=== PATIENT | female | born 1950 | race Two or more races ===

== ENCOUNTER 2017-03-06 06:35 | Outpatient (CLI) | payer OTHER ==
[~2017-03-06 06:35] MED LIST: ACCUPRIL40 MG; DORZOLAMIDE-TIM10 ML; EVISTA60 MG; HYDROCHLOROTHIA25 MG; LATANOPROST2.5 ML; METFORMIN HCL500 M1; SIMVASTATIN20 MG; TOPROL XL100 M1
== END 2017-03-06 06:53 | disposition home or self-care (01) ==
LOC: LAB 06:35
DX: H25.89 Other age-related cataract (principal); Z01.810 Encounter for preprocedural cardiovascular examination; I10 Essential (primary) hypertension; K21.9 Gastro-esophageal reflux disease without esophagitis; M54.5 Low back pain; E03.8 Other specified hypothyroidism; E11.42 Type 2 diabetes mellitus with diabetic polyneuropathy; E11.51 Type 2 diabetes mellitus with diabetic peripheral angiopathy without gangrene; E55.9 Vitamin D deficiency, unspecified; E66.8 Other obesity; G62.9 Polyneuropathy, unspecified; Z12.11 Encounter for screening for malignant neoplasm of colon

== ENCOUNTER 2017-03-06 07:49 | Outpatient (CLI) | payer OTHER | END 2017-03-06 07:59 | disposition home or self-care (01) | LOC: MAMO-SONO 07:49 | DX: Z12.31 Encounter for screening mammogram for malignant neoplasm of breast (principal); Z87.898 Personal history of other specified conditions; Z12.11 Encounter for screening for malignant neoplasm of colon; H25.89 Other age-related cataract; Z01.810 Encounter for preprocedural cardiovascular examination; I10 Essential (primary) hypertension; K21.9 Gastro-esophageal reflux disease without esophagitis; M54.5 Low back pain; E03.8 Other specified hypothyroidism; E11.42 Type 2 diabetes mellitus with diabetic polyneuropathy; E11.51 Type 2 diabetes mellitus with diabetic peripheral angiopathy without gangrene; E55.9 Vitamin D deficiency, unspecified; E66.8 Other obesity ==

== ENCOUNTER 2017-07-01 06:23 | Outpatient (CLI) | payer OTHER | END 2017-07-01 06:32 | disposition home or self-care (01) | LOC: LAB 06:23 | DX: H25.89 Other age-related cataract (principal); I10 Essential (primary) hypertension; K21.9 Gastro-esophageal reflux disease without esophagitis; M54.5 Low back pain; E03.8 Other specified hypothyroidism; E11.42 Type 2 diabetes mellitus with diabetic polyneuropathy; E11.51 Type 2 diabetes mellitus with diabetic peripheral angiopathy without gangrene; E55.9 Vitamin D deficiency, unspecified; E66.8 Other obesity; G62.89 Other specified polyneuropathies; Z12.11 Encounter for screening for malignant neoplasm of colon ==

== ENCOUNTER → 2017-08-15 07:39 | Outpatient (CLI) | payer OTHER | END | disposition home or self-care (01) | LOC: LAB 07:39 | DX: N39.0 Urinary tract infection, site not specified (principal); R82.79 Other abnormal findings on microbiological examination of urine ==

== ENCOUNTER 2017-09-05 07:48 | Outpatient (CLI) | payer OTHER | END 2017-09-05 08:04 | disposition home or self-care (01) | LOC: LAB 07:48 | DX: N30.00 Acute cystitis without hematuria (principal); B96.5 Pseudomonas (aeruginosa) (mallei) (pseudomallei) as the cause of diseases classified elsewhere ==

== ENCOUNTER 2017-10-10 08:01 | Outpatient (CLI) | payer OTHER | END 2017-10-10 08:07 | disposition home or self-care (01) | LOC: LAB 08:01 | DX: H25.89 Other age-related cataract (principal); K21.9 Gastro-esophageal reflux disease without esophagitis; M54.5 Low back pain; E03.8 Other specified hypothyroidism; E11.42 Type 2 diabetes mellitus with diabetic polyneuropathy; E11.51 Type 2 diabetes mellitus with diabetic peripheral angiopathy without gangrene; E55.9 Vitamin D deficiency, unspecified; E66.8 Other obesity; G62.89 Other specified polyneuropathies; Z12.11 Encounter for screening for malignant neoplasm of colon; I11.9 Hypertensive heart disease without heart failure; E11.65 Type 2 diabetes mellitus with hyperglycemia; E11.59 Type 2 diabetes mellitus with other circulatory complications ==

== ENCOUNTER 2018-03-31 10:15 | Outpatient (CLI) | payer OTHER | END 2018-03-31 10:20 | disposition home or self-care (01) | LOC: MAMO-SONO 10:15 | DX: Z12.31 Encounter for screening mammogram for malignant neoplasm of breast (principal); Z87.898 Personal history of other specified conditions; N64.89 Other specified disorders of breast; E11.42 Type 2 diabetes mellitus with diabetic polyneuropathy; K21.9 Gastro-esophageal reflux disease without esophagitis; M54.5 Low back pain; E03.8 Other specified hypothyroidism; E11.41 Type 2 diabetes mellitus with diabetic mononeuropathy; E11.51 Type 2 diabetes mellitus with diabetic peripheral angiopathy without gangrene; E55.9 Vitamin D deficiency, unspecified; I11.9 Hypertensive heart disease without heart failure; E11.65 Type 2 diabetes mellitus with hyperglycemia; E11.59 Type 2 diabetes mellitus with other circulatory complications; E11.319 Type 2 diabetes mellitus with unspecified diabetic retinopathy without macular edema ==

== ENCOUNTER 2018-09-22 09:33 | Outpatient (CLI) | payer OTHER | END 2018-09-22 09:36 | disposition home or self-care (01) | LOC: NUCLEAR 09:33 | DX: M54.5 Low back pain (principal); M81.0 Age-related osteoporosis without current pathological fracture ==

== ENCOUNTER 2019-04-12 12:05 | Outpatient (CLI) | payer OTHER | END 2019-04-12 12:18 | disposition home or self-care (01) | LOC: MAMO-SONO 12:05 | DX: K21.9 Gastro-esophageal reflux disease without esophagitis (principal); M54.5 Low back pain; E03.8 Other specified hypothyroidism; E11.42 Type 2 diabetes mellitus with diabetic polyneuropathy; E11.51 Type 2 diabetes mellitus with diabetic peripheral angiopathy without gangrene; E55.9 Vitamin D deficiency, unspecified; I11.9 Hypertensive heart disease without heart failure; E11.65 Type 2 diabetes mellitus with hyperglycemia; E11.59 Type 2 diabetes mellitus with other circulatory complications; E11.319 Type 2 diabetes mellitus with unspecified diabetic retinopathy without macular edema; H25.89 Other age-related cataract; Z12.31 Encounter for screening mammogram for malignant neoplasm of breast ==

== ENCOUNTER 2019-06-15 10:37 | Outpatient (CLI) | payer OTHER | END 2019-06-15 10:55 | disposition home or self-care (01) | LOC: LAB 10:37 | DX: K21.9 Gastro-esophageal reflux disease without esophagitis (principal); M54.5 Low back pain; E03.8 Other specified hypothyroidism; E11.42 Type 2 diabetes mellitus with diabetic polyneuropathy; E11.51 Type 2 diabetes mellitus with diabetic peripheral angiopathy without gangrene; E55.9 Vitamin D deficiency, unspecified; I11.9 Hypertensive heart disease without heart failure; E11.65 Type 2 diabetes mellitus with hyperglycemia; E11.59 Type 2 diabetes mellitus with other circulatory complications; E11.319 Type 2 diabetes mellitus with unspecified diabetic retinopathy without macular edema; H25.89 Other age-related cataract; E66.8 Other obesity; E78.89 Other lipoprotein metabolism disorders; G62.89 Other specified polyneuropathies; M89.8X8 Other specified disorders of bone, other site; Z79.84 Long term (current) use of oral hypoglycemic drugs; N32.89 Other specified disorders of bladder; R39.14 Feeling of incomplete bladder emptying; N36.8 Other specified disorders of urethra; E78.2 Mixed hyperlipidemia; N20.0 Calculus of kidney; Z12.31 Encounter for screening mammogram for malignant neoplasm of breast; M81.0 Age-related osteoporosis without current pathological fracture; Z13.820 Encounter for screening for osteoporosis ==

== ENCOUNTER 2020-07-31 09:37 | Outpatient (CLI) | payer OTHER ==
[~2020-07-31 09:37] MED LIST changes: -SIMVASTATIN20 MG; +SIMVASTATIN20 MG PO
== END 2020-07-31 09:42 | disposition home or self-care (01) ==
LOC: MAMO-SONO 09:37
PROVIDERS: ATTEND Internal Medicine
DX: N32.9 Bladder disorder, unspecified (principal); R39.14 Feeling of incomplete bladder emptying; M81.0 Age-related osteoporosis without current pathological fracture; Z13.820 Encounter for screening for osteoporosis; Z79.84 Long term (current) use of oral hypoglycemic drugs; Z12.31 Encounter for screening mammogram for malignant neoplasm of breast

== ENCOUNTER 2020-09-18 07:45 | Inpatient (IN) | payer OTHER ==
[~2020-09-18] VITALS: Ht 162.6 cm; Wt 81.6 kg
[2020-09-21] MEDS ORDERED: ISOSORBIDE MONO60 MG PO (08:01)
[2020-09-21] MEDS ORDERED: LOSARTAN POTAS100 MG PO (08:01)
[2020-09-21] MEDS ORDERED: TOPROL XL50 M1 PO (08:02)
[2020-09-21] MEDS ORDERED: SPIRONOLACTONE25 MG PO (08:02)
[2020-09-21] MEDS ORDERED: DORZOLAMIDE-TIM10 ML OPHT (08:04)
[2020-09-21] MEDS ORDERED: LATANOPROST2.5 ML OPHT (08:05)
[2020-09-21] MEDS ORDERED: LASIX40 MG PO (08:08)
[2020-09-24] MEDS ORDERED: NASAL MIST126 ML NASAL (07:21)
[2020-09-24] MEDS ORDERED: LASIX40 MG PO (07:21)
[2020-09-24] MEDS ORDERED: HYDRALAZINE HCL50 MG PO (07:21)
[2020-09-24] MEDS ORDERED: NORVASC10 MG PO (07:21)
== END 2020-09-24 16:00 | disposition home or self-care (01) | DRG 292 ==
LOC: ER 07:45 → MEDI 13:09 → MEDJ 13:09 → MEDI 09-19 13:05
PROVIDERS: ADMIT Internal Medicine; ATTEND Internal Medicine
PROC: 4A033R1 Measurement of Arterial Saturation, Peripheral, Percutaneous Approach (ICD-10-PCS; principal; 2020-09-18)
PROC: 4A12X4Z Monitoring of Cardiac Electrical Activity, External Approach (ICD-10-PCS; 2020-09-18)
PROC: 3E0F7GC Introduction of Other Therapeutic Substance into Respiratory Tract, Via Natural or Artificial Opening (ICD-10-PCS; 2020-09-18)
PROC: B24BZZZ Ultrasonography of Heart with Aorta (ICD-10-PCS; 2020-09-18)
PROC: 3E0F7SF Introduction of Other Gas into Respiratory Tract, Via Natural or Artificial Opening (ICD-10-PCS; 2020-09-20)
DX: I50.9 Heart failure, unspecified (principal); I16.9 Hypertensive crisis, unspecified; I51.7 Cardiomegaly; I25.119 Atherosclerotic heart disease of native coronary artery with unspecified angina pectoris; Z20.822 Contact with and (suspected) exposure to COVID-19; R06.02 Shortness of breath; E11.9 Type 2 diabetes mellitus without complications; R07.9 Chest pain, unspecified; E66.8 Other obesity

== ENCOUNTER 2020-10-12 13:12 | Outpatient (CLI) | payer OTHER ==
[~2020-10-12 13:12] MED LIST changes: +DORZOLAMIDE-TIM10 ML OPHT; +HYDRALAZINE HCL50 MG PO; +ISOSORBIDE MONO60 MG PO; +LASIX40 MG PO; +LATANOPROST2.5 ML OPHT; +LOSARTAN POTAS100 MG PO; +NASAL MIST126 ML NASAL; +NORVASC10 MG PO; +SPIRONOLACTONE25 MG PO; +TOPROL XL50 M1 PO
== END 2020-10-12 13:14 | disposition home or self-care (01) ==
LOC: NUCLEAR 13:12
PROVIDERS: ATTEND Internal Medicine
DX: M81.0 Age-related osteoporosis without current pathological fracture (principal); Z13.820 Encounter for screening for osteoporosis